=== PATIENT | male | born 2000 ===

== ENCOUNTER 2021-11-30 10:21 | Emergency (ER) | payer SELFPAY ==
[2021-11-30] MEDS ORDERED: Acetaminophen/Codeine 120-12 MG/5 ML Soln 5 ML UD Cup PO ONE (11:07)
== END 2021-11-30 11:32 | disposition home or self-care (01) ==
LOC: MW.ED 10:21
DX: J02.9 Acute pharyngitis, unspecified (principal); J01.00 Acute maxillary sinusitis, unspecified; Z20.822 Contact with and (suspected) exposure to COVID-19
CPT/HCPCS: 71045; 87635; 87651; 99283; A9270; U0002